=== PATIENT | male | born 1940 | race African-American/Black ===

== ENCOUNTER 2017-03-02 03:54 | Emergency (ER) | payer OTHER ==
[~2017-03-02] VITALS: Ht 175.3 cm; Wt 84.0 kg
[2017-03-02] MEDS ORDERED: MORPHINE SULFATE 4 MG/ML CPJ (NOT FOR IM USE) IV STA (04:01)
[2017-03-02] MEDS ORDERED: MAGNESIUM/ALUMINUM HYDROXIDE/SIMETHICONE 30ML UDC PO ONE (04:15)
[2017-03-02] MEDS ORDERED: ASPIRIN 81MG TABLET PO ONE (04:15)
[2017-03-02] MEDS ORDERED: NITROGLYCERIN OINT 1GM/INCH UDPKT TD ONE (04:15)
[2017-03-02 04:31] LABS: BASOPHILS % 0.7 % (0.0-2.0); EOSINOPHILS % 2.7 % (0.0-5.0); HEMATOCRIT. 25.6 % (42.0-52.0); HEMOGLOBIN. 8.6 g/dL (14.0-18.0); LYMPHOCYTES % 22.7 % (20.0-50.0); MEAN CORPUSCULAR HEMOGLOBIN 30.9 pg (28.0-32.0); MEAN CORPUSCULAR VOLUME 91.5 fL (80.0-94.0); MEAN PLATELET VOLUME 7.5 fl (7.4-10.4); MONOCYTES % 7.8 % (2.0-8.0); NEUTROPHILS % 66.1 % (40.0-76.0); PLATELET 356 x1000/uL (130-400); RED CELL DISTRIBUTION WIDTH 13.5 % (11.6-14.6)
[2017-03-02 04:46] LABS: CARBON DIOXIDE 21 mEq/L (21-32); CHLORIDE 103 mEq/L (98-107); ETHANOL BLOOD < 10 mg/dL; TROPONIN I < 0.02 ng/mL (0.00-0.04)
[2017-03-02 06:00] VITALS: BP 157/75
== END 2017-03-02 07:39 | disposition short-term general hospital (02) ==
LOC: ER 03:59
DX: R07.9 Chest pain, unspecified (principal); N19 Unspecified kidney failure; I10 Essential (primary) hypertension; E11.9 Type 2 diabetes mellitus without complications; Z86.73 Personal history of transient ischemic attack (TIA), and cerebral infarction without residual deficits
CPT/HCPCS: 36415; 71010; 80053; 83690; 83880; 84484; 85025; 85379; 93005; 96374; 99285; G0482; J2270

== ENCOUNTER 2018-04-30 13:01 | Emergency (ER) | payer OTHER ==
[~2018-04-30] VITALS: Ht 177.8 cm; Wt 85.0 kg
[~2018-04-30 13:01] MED LIST: FURO80TA3 PO; HYDR100T26 PO; ISOS30TA6 PO; LOVA20TA2 PO; METO-539 PO; NIFE30TA43 PO; TERA5CAP4 PO
[2018-04-30 17:54] LABS: COLOR URINE YELLOW (YELLOW); KETONES URINE TRACE (NEGATIVE); LEUKOCYTE ESTERASE URINE 3+ (NEGATIVE); NITRITE URINE NEGATIVE (NEGATIVE); OCCULT BLOOD URINE 2+ (NEGATIVE); PH URINE 5.5 (4.5-8.0); PROTEIN URINE 2+ (NEGATIVE); SPECIFIC GRAVITY URINE 1.016 (1.005-1.030); UROBILINOGEN URINE 0.2 E.U./dL (0.2-1.0)
[2018-04-30 17:58] LABS: CLARITY URINE CLOUDY (CLEAR)
[2018-04-30] MEDS ORDERED: NITROFURANTOIN 100MG M/M CAPSULE PO ONE (18:15)
[2018-04-30 18:29] VITALS: BP 170/68
== END 2018-04-30 18:40 | disposition home or self-care (01) ==
LOC: ER 13:01
DX: N39.0 Urinary tract infection, site not specified (principal); E11.9 Type 2 diabetes mellitus without complications; I50.9 Heart failure, unspecified; F12.10 Cannabis abuse, uncomplicated; Z79.899 Other long term (current) drug therapy
CPT/HCPCS: 81003; 87086; 99284

== ENCOUNTER 2018-09-05 12:24 | Emergency (ER) | payer OTHER ==
[~2018-09-05] VITALS: Ht 172.7 cm; Wt 63.0 kg
[2018-09-05] MEDS ORDERED: SODIUM CHLORIDE 0.9% 250 ML IV ONE (13:42)
[2018-09-05] MEDS ORDERED: CLONIDINE 0.2MG TABLET PO ONE (13:45)
[2018-09-05 14:25] LABS: HEMATOCRIT. 35.1 % (42.0-52.0); HEMOGLOBIN. 11.6 g/dL (14.0-18.0); MEAN CORPUSCULAR HEMOGLOBIN 30.1 pg (28.0-32.0); MEAN CORPUSCULAR VOLUME 91.1 fL (80.0-94.0); MEAN PLATELET VOLUME 7.6 fl (7.4-10.4); PLATELET 153 x1000/uL (130-400); RED BLOOD CELL COUNT 3.85 mill/uL (4.7-6.1); RED CELL DISTRIBUTION WIDTH 14.5 % (11.6-14.6)
[2018-09-05 14:34] LABS: CHLORIDE 104 mEq/L (98-107)
[2018-09-05 14:40] LABS: INR 1.1; PARTIAL THROMBOPLASTIN TIME 29.2 sec (23.4-31.0); PROTHROMBIN TIME 10.7 sec (9.1-11.1)
[2018-09-05 15:18] LABS: PLATELET ESTIMATE NORMAL
[2018-09-05 18:57] VITALS: BP 148/82
== END 2018-09-05 19:34 | disposition short-term general hospital (02) ==
LOC: ER 12:24
DX: E11.22 Type 2 diabetes mellitus with diabetic chronic kidney disease (principal); I12.0 Hypertensive chronic kidney disease with stage 5 chronic kidney disease or end stage renal disease; N18.6 End stage renal disease; I95.1 Orthostatic hypotension; R19.7 Diarrhea, unspecified; R53.1 Weakness; I11.0 Hypertensive heart disease with heart failure; I50.9 Heart failure, unspecified; F12.10 Cannabis abuse, uncomplicated; Z99.2 Dependence on renal dialysis
CPT/HCPCS: 36415; 71045; 80053; 82962; 83880; 84484; 85025; 85610; 85730; 93005; 96360; 96361; 99285; J7050

== ENCOUNTER 2020-04-26 19:12 | Emergency (ER) | payer OTHER ==
[~2020-04-26] VITALS: Ht 180.3 cm; Wt 91.0 kg
[2020-04-26 21:08] LABS: HEMOGLOBIN. 11.9 g/dL (14.0-18.0); MEAN CORPUSCULAR HEMOGLOBIN 32.4 pg (28.0-32.0); MEAN CORPUSCULAR VOLUME 95.1 fL (80.0-94.0); MEAN PLATELET VOLUME 8.3 fl (7.4-10.4); PLATELET 200 x1000/uL (130-400); RED BLOOD CELL COUNT 3.68 mill/uL (4.7-6.1); RED CELL DISTRIBUTION WIDTH 14.1 % (11.6-14.6)
[2020-04-26 21:14] LABS: CHLORIDE 104 mEq/L (98-107)
[2020-04-26 21:18] LABS: ETHANOL BLOOD < 10 mg/dL
[2020-04-26 21:39] LABS: PLATELET ESTIMATE NORMAL
[2020-04-26 23:51] VITALS: BP 155/74
== END 2020-04-27 00:01 ==
LOC: ER 19:12 → CANBEDREQ 04-27 02:12
DX: S00.512A Abrasion of oral cavity, initial encounter (principal); R56.9 Unspecified convulsions; I12.0 Hypertensive chronic kidney disease with stage 5 chronic kidney disease or end stage renal disease; E11.22 Type 2 diabetes mellitus with diabetic chronic kidney disease; N18.6 End stage renal disease; D53.9 Nutritional anemia, unspecified; E11.65 Type 2 diabetes mellitus with hyperglycemia; Z99.2 Dependence on renal dialysis; Z86.73 Personal history of transient ischemic attack (TIA), and cerebral infarction without residual deficits; Z98.890 Other specified postprocedural states; Z79.899 Other long term (current) drug therapy; X58.XXXA Exposure to other specified factors, initial encounter; Y93.89 Activity, other specified; Y92.89 Other specified places as the place of occurrence of the external cause; Y99.8 Other external cause status
CPT/HCPCS: 36415; 71045; 80053; 80320; 84484; 85025; 93005; 99285; G0480

== ENCOUNTER 2020-08-19 17:54 | Inpatient (IN) | payer OTHER ==
[~2020-08-19] VITALS: Ht 175.3 cm; Wt 64.6 kg
[2020-08-19 18:30] LABS: BASOPHILS % 0.5 % (0.0-2.0); EOSINOPHILS % 3.9 % (0.0-5.0); HEMATOCRIT. 35.3 % (42.0-52.0); HEMOGLOBIN. 11.6 g/dL (14.0-18.0); LYMPHOCYTES % 35.9 % (20.0-50.0); MEAN CORPUSCULAR HEMOGLOBIN 31.2 pg (28.0-32.0); MEAN CORPUSCULAR VOLUME 94.8 fL (80.0-94.0); MEAN PLATELET VOLUME 7.9 fl (7.4-10.4); MONOCYTES % 12.7 % (2.0-8.0); PLATELET 245 x1000/uL (130-400); RED BLOOD CELL COUNT 3.72 mill/uL (4.7-6.1); RED CELL DISTRIBUTION WIDTH 15.1 % (11.6-14.6)
[2020-08-19 18:35] LABS: CHLORIDE 105 mEq/L (98-107)
[2020-08-19 18:39] LABS: ETHANOL BLOOD < 10 mg/dL; PROTHROMBIN TIME 10.8 sec (9.6-11.0)
[2020-08-19 18:42] LABS: LDL CHOLESTEROL 53 mg/dL (5-100)
[2020-08-19 21:00] LABS: CLARITY URINE CLOUDY (CLEAR); COLOR URINE YELLOW (YELLOW); KETONES URINE TRACE (NEGATIVE); LEUKOCYTE ESTERASE URINE 3+ (NEGATIVE); NITRITE URINE NEGATIVE (NEGATIVE); OCCULT BLOOD URINE 2+ (NEGATIVE); PH URINE 5.5 (4.5-8.0); PROTEIN URINE 2+ (NEGATIVE); SPECIFIC GRAVITY URINE 1.019 (1.005-1.030); UROBILINOGEN URINE 0.2 E.U./dL (0.2-1.0)
[2020-08-19 21:22] LABS: *AMPHETAMINES SCREEN URINE NEGATIVE (NEGATIVE); *BARBITURATES SCREEN URINE NEGATIVE (NEGATIVE); *BENZODIAZEPINES SCREEN URINE NEGATIVE (NEGATIVE); *COCAINE SCREEN URINE NEGATIVE (NEGATIVE); METHADONE URINE SCREEN NEGATIVE (NEGATIVE)
[2020-08-19 21:23] LABS: CANNABINOID URINE SCREEN NEGATIVE (NEGATIVE); OPIATES URINE SCREEN NEGATIVE (NEGATIVE); PHENCYCLIDINE URINE SCREEN NEGATIVE (NEGATIVE)
[2020-08-19] MEDS ORDERED: IOHEXOL-300 100 ML BOTTLE ONE (22:09)
[2020-08-19] MEDS ORDERED: IOHEXOL-350 100 ML BOTTLE ONE (22:09)
[2020-08-19] MEDS ORDERED: DIPHENHYDRAMINE 50MG/ML VIAL IV PRN (23:15)
[2020-08-19] MEDS ORDERED: ACETAMINOPHEN 325MG TABLET PO PRN ×2 (23:15)
[2020-08-19] MEDS ORDERED: ONDANSETRON HCL 4MG/2ML INJ IV PRN (23:15)
[2020-08-20] MEDS: CLONIDINE 0.1MG TABLET PO PRN ×2 (01:40→19:29)
[2020-08-20] MEDS: AMLODIPINE 5MG TABLET PO SCH ×2 (09:00→20:54)
[2020-08-20] MEDS ORDERED: CEFTRIAXONE 1 G PREMIX 50 ML IV SCH (15:00)
[2020-08-20] MEDS ORDERED: CEFTRIAXONE SODIUM 1 G/VIAL ONE (17:18)
[2020-08-20] MEDS: CEFTRIAXONE 1,000 MG in DEXTROSE 5% WATER 50 ML IV SCH (17:40)
[2020-08-20] MEDS ORDERED: HYDRALAZINE 20MG/ML VIAL IV NR (21:16)
[2020-08-20 22:12] VITALS: BP 240/97
[2020-08-20] MEDS ORDERED: LABETALOL 5MG/ML SYR 20 MG/4 ML SYRINGE IV NR (22:45)
[2020-08-21] MEDS: SODIUM CHLORIDE 0.9% INJ 3ML FLUSH IVF SCH (05:01)
[2020-08-21] MEDS: HYDRALAZINE HCL 50MG TABLET PO SCH ×3 (05:02→21:41)
[2020-08-21 06:09] VITALS: BP 158/76
[2020-08-21 07:00] VITALS: BP 144/59
[2020-08-21 08:00] VITALS: BP 136/67
[2020-08-21] MEDS ORDERED: NIFEDIPINE XL 30MG TAB PO SCH (09:00)
[2020-08-21] MEDS: AMLODIPINE 5MG TABLET PO SCH ×2 (10:34→21:42)
[2020-08-21] MEDS: METOPROLOL TARTRATE 50MG TABLET PO SCH ×2 (10:34→21:42)
[2020-08-21 10:54] LABS: BASOPHILS % 1.3 % (0.0-2.0); EOSINOPHILS % 5.2 % (0.0-5.0); HEMATOCRIT. 32.9 % (42.0-52.0); HEMOGLOBIN. 10.9 g/dL (14.0-18.0); MEAN CORPUSCULAR HEMOGLOBIN 31.4 pg (28.0-32.0); MEAN CORPUSCULAR VOLUME 94.5 fL (80.0-94.0); MEAN PLATELET VOLUME 7.9 fl (7.4-10.4); MONOCYTES % 12.5 % (2.0-8.0); PLATELET 226 x1000/uL (130-400); RED BLOOD CELL COUNT 3.48 mill/uL (4.7-6.1)
[2020-08-21 12:00] VITALS: BP 168/76
[2020-08-21] MEDS: CEFTRIAXONE 1,000 MG in DEXTROSE 5% WATER 50 ML IV SCH (15:54)
[2020-08-21] MEDS: FLUCONAZOLE 100MG TABLET PO SCH (15:56)
[2020-08-21 16:00] VITALS: BP 139/60
[2020-08-21] MEDS ORDERED: LORAZEPAM 2MG/ML CPJ IM PRN (18:00)
[2020-08-21 20:00] VITALS: BP 149/59
[2020-08-22] VITALS: BP 178/79
[2020-08-22 04:00] VITALS: BP_SYST 163; BP_DIAS 50; BP_DIAS 58
[2020-08-22] MEDS: HYDRALAZINE HCL 50MG TABLET PO SCH ×3 (06:34→21:16)
[2020-08-22 07:32] LABS: BASOPHILS % 0.9 % (0.0-2.0); EOSINOPHILS % 6.3 % (0.0-5.0); HEMATOCRIT. 34.2 % (42.0-52.0); HEMOGLOBIN. 11.4 g/dL (14.0-18.0); LYMPHOCYTES % 29.3 % (20.0-50.0); MEAN CORPUSCULAR HEMOGLOBIN 31.9 pg (28.0-32.0); MEAN CORPUSCULAR VOLUME 95.6 fL (80.0-94.0); MEAN PLATELET VOLUME 8.2 fl (7.4-10.4); NEUTROPHILS % 50.5 % (40.0-76.0); PLATELET 229 x1000/uL (130-400); RED BLOOD CELL COUNT 3.58 mill/uL (4.7-6.1); RED CELL DISTRIBUTION WIDTH 15.4 % (11.6-14.6)
[2020-08-22 08:00] VITALS: BP 153/89
[2020-08-22] MEDS: FLUCONAZOLE 100MG TABLET PO SCH (08:50)
[2020-08-22] MEDS: AMLODIPINE 5MG TABLET PO SCH ×2 (08:51→21:16)
[2020-08-22] MEDS: METOPROLOL TARTRATE 50MG TABLET PO SCH ×2 (08:51→21:16)
[2020-08-22 12:00] VITALS: BP 163/78
[2020-08-22] MEDS: SODIUM CHLORIDE 0.9% INJ 3ML FLUSH IVF SCH ×2 (13:01→21:16)
[2020-08-22] MEDS: CEFTRIAXONE 1,000 MG in DEXTROSE 5% WATER 50 ML IV SCH (15:32)
[2020-08-22 16:00] VITALS: BP 159/67
[2020-08-22 20:00] VITALS: BP 165/69
[2020-08-23] VITALS: BP 185/66
[2020-08-23] MEDS: CLONIDINE 0.1MG TABLET PO PRN (00:10)
[2020-08-23 04:00] VITALS: BP 133/61
[2020-08-23] MEDS: SODIUM CHLORIDE 0.9% INJ 3ML FLUSH IVF SCH ×2 (05:59→13:27)
[2020-08-23] MEDS: HYDRALAZINE HCL 50MG TABLET PO SCH ×2 (05:59→13:27)
[2020-08-23 08:00] VITALS: BP 163/70
[2020-08-23] MEDS: FLUCONAZOLE 100MG TABLET PO SCH (08:38)
[2020-08-23] MEDS: METOPROLOL TARTRATE 50MG TABLET PO SCH (08:39)
[2020-08-23] MEDS: AMLODIPINE 5MG TABLET PO SCH (08:39)
[2020-08-23 10:07] VITALS: BP 124/42
[2020-08-23 10:08] VITALS: BP 124/42
[2020-08-23 12:00] VITALS: BP 112/33
[2020-08-23] MEDS: CEFTRIAXONE 1,000 MG in DEXTROSE 5% WATER 50 ML IV SCH (15:00)
[2020-08-23 16:30] LABS: BASOPHILS % 1.4 % (0.0-2.0); EOSINOPHILS % 5.1 % (0.0-5.0); HEMATOCRIT. 33.7 % (42.0-52.0); HEMOGLOBIN. 11.4 g/dL (14.0-18.0); LYMPHOCYTES % 22.5 % (20.0-50.0); MEAN CORPUSCULAR HEMOGLOBIN 31.5 pg (28.0-32.0); MEAN PLATELET VOLUME 7.8 fl (7.4-10.4); MONOCYTES % 13.5 % (2.0-8.0); NEUTROPHILS % 57.5 % (40.0-76.0); PLATELET 253 x1000/uL (130-400); RED BLOOD CELL COUNT 3.62 mill/uL (4.7-6.1)
== END 2020-08-23 16:08 | disposition home or self-care (01) | DRG 70 ==
LOC: ER 18:01 → MICUSO 19:53 → 5WST 08-20 22:50
PROVIDERS: ADMIT Internal Medicine; ATTEND Internal Medicine
PROC: 5A1D70Z Performance of Urinary Filtration, Intermittent, Less than 6 Hours Per Day (ICD-10-PCS; 2020-08-22)
PROC: 5A1D70Z Performance of Urinary Filtration, Intermittent, Less than 6 Hours Per Day (ICD-10-PCS; principal; 2020-08-23)
DX: G93.41 Metabolic encephalopathy (principal); N18.6 End stage renal disease; N39.0 Urinary tract infection, site not specified; I12.0 Hypertensive chronic kidney disease with stage 5 chronic kidney disease or end stage renal disease; E11.22 Type 2 diabetes mellitus with diabetic chronic kidney disease; E20.9 Hypoparathyroidism, unspecified; F03.90 Unspecified dementia, unspecified severity, without behavioral disturbance, psychotic disturbance, mood disturbance, and anxiety; F17.200 Nicotine dependence, unspecified, uncomplicated; R56.9 Unspecified convulsions; Z86.73 Personal history of transient ischemic attack (TIA), and cerebral infarction without residual deficits; Z99.2 Dependence on renal dialysis; Z79.899 Other long term (current) drug therapy; Z88.8 Allergy status to other drugs, medicaments and biological substances; I67.2 Cerebral atherosclerosis
CPT/HCPCS: 36415; 70496; 70498; 71045; 80048; 80053; 80305; 80320; 81003; 82962; 83721; 84484; 85025; 87106; 93005; 95816; 99291; J0360; J0696; J1200; J2060; J2405; J3490; J7060; Q9967; G0480

== ENCOUNTER 2020-08-26 10:32 | Emergency (ER) | payer OTHER ==
[~2020-08-26] VITALS: Ht 182.9 cm; Wt 75.0 kg
[2020-08-26 11:39] LABS: CHLORIDE 111 mEq/L (98-107)
[2020-08-26 11:40] LABS: BASOPHILS % 1.4 % (0.0-2.0); EOSINOPHILS % 2.8 % (0.0-5.0); HEMATOCRIT. 33.1 % (42.0-52.0); HEMOGLOBIN. 11.2 g/dL (14.0-18.0); LYMPHOCYTES % 22.9 % (20.0-50.0); MEAN CORPUSCULAR HEMOGLOBIN 32.1 pg (28.0-32.0); MEAN CORPUSCULAR VOLUME 94.8 fL (80.0-94.0); MEAN PLATELET VOLUME 7.9 fl (7.4-10.4); MONOCYTES % 11.2 % (2.0-8.0); NEUTROPHILS % 61.7 % (40.0-76.0); PLATELET 272 x1000/uL (130-400); RED BLOOD CELL COUNT 3.49 mill/uL (4.7-6.1); RED CELL DISTRIBUTION WIDTH 15.1 % (11.6-14.6)
[2020-08-26 11:55] LABS: INR 1.1; PROTHROMBIN TIME 11.3 sec (9.6-11.0)
[2020-08-26 13:14] LABS: CLARITY URINE CLOUDY (CLEAR); COLOR URINE YELLOW (YELLOW); KETONES URINE TRACE (NEGATIVE); LEUKOCYTE ESTERASE URINE 3+ (NEGATIVE); NITRITE URINE NEGATIVE (NEGATIVE); OCCULT BLOOD URINE 2+ (NEGATIVE); PH URINE 7.5 (4.5-8.0); PROTEIN URINE 3+ (NEGATIVE); SPECIFIC GRAVITY URINE 1.017 (1.005-1.030); UROBILINOGEN URINE 0.2 E.U./dL (0.2-1.0)
[2020-08-26] MEDS ORDERED: CEFTRIAXONE 1 G PREMIX 50 ML IV NR (14:00)
[2020-08-26 19:45] VITALS: BP 152/57
[2020-08-26] MEDS ORDERED: DEXTROSE 50% WATER 50ML SYRINGE IV ONE (20:15)
== END 2020-08-26 20:46 | disposition short-term general hospital (02) ==
LOC: ER 10:32 → EDBEDREQ 12:03 → EDBEDREQTM 12:03 → ER 20:46 → CANBEDREQ 22:16
DX: N39.0 Urinary tract infection, site not specified (principal); G93.49 Other encephalopathy; R53.1 Weakness; R79.89 Other specified abnormal findings of blood chemistry; I69.321 Dysphasia following cerebral infarction; I12.0 Hypertensive chronic kidney disease with stage 5 chronic kidney disease or end stage renal disease; E11.22 Type 2 diabetes mellitus with diabetic chronic kidney disease; N18.6 End stage renal disease; Z99.2 Dependence on renal dialysis
CPT/HCPCS: 36415; 70450; 71045; 80053; 81003; 82962; 83605; 84145; 84484; 85025; 85610; 87040; 87086; 93005; 96365; 96375; 99285; J0696